=== PATIENT | female | born 1995 | race African-American/Black ===

== ENCOUNTER 2019-06-05 10:03 | Emergency (ER) | payer MEDICAID ==
[~2019-06-05] VITALS: Ht 157.5 cm; Wt 62.0 kg
[2019-06-05] MEDS ORDERED: HYDROCODONE/ACETAMINOPHEN 5/325MG TABLET PO ONE (10:45)
[2019-06-05] MEDS ORDERED: ONDANSETRON 4MG ODT PO ONE (10:45)
[2019-06-05] MEDS ORDERED: CEFAZOLIN SODIUM 1000MG/VIAL IM ONE (10:45)
[2019-06-05 10:49] VITALS: BP 119/74
== END 2019-06-05 11:00 | disposition home or self-care (01) ==
LOC: ER 10:59
DX: R68.84 Jaw pain (principal); K04.7 Periapical abscess without sinus
CPT/HCPCS: 99283; J0690; Q0162

== ENCOUNTER 2024-05-09 22:41 | Emergency (ER) | payer SELFPAY ==
[~2024-05-09] VITALS: Ht 157.5 cm; Wt 73.0 kg
[2024-05-09 23:21] VITALS: O2SAT 100
[2024-05-10 03:21] LABS: CLARITY URINE CLEAR (CLEAR); COLOR URINE DARK YELLOW (YELLOW); GLUCOSE URINE NEGATIVE (NEGATIVE); KETONES URINE 4+ (NEGATIVE); LEUKOCYTE ESTERASE URINE NEGATIVE (NEGATIVE); NITRITE URINE NEGATIVE (NEGATIVE); OCCULT BLOOD URINE 1+ (NEGATIVE); PROTEIN URINE TRACE (NEGATIVE); SPECIFIC GRAVITY URINE 1.034 (1.005-1.030)
[2024-05-10] MEDS: CEFTRIAXONE SODIUM 500MG VIAL IM ONE (03:31)
[2024-05-10] MEDS ORDERED: DOXY100T28 MT (03:46)
[2024-05-10 03:52] VITALS: BP 118/76; PULSE 88; RESP 19; TEMP 98
[2024-05-10 04:20] LABS: BACTERIA URINE TRACE; MUCUS URINE 2+ /lpf (< = 2+); SQUAMOUS EPITHELIAL CELL URINE 2+ /lpf (RARE/1+); WBC URINE 0-2 /hpf (0-2)
[2024-05-13 04:07] LABS: CHLAMYDIA TRACHOMATIS NAA Negative (Negative); NEISSERIA GONORRHOEAE NAA Positive (Negative)
== END 2024-05-10 03:55 | disposition home or self-care (01) ==
LOC: ER 22:41
DX: N76.0 Acute vaginitis (principal)
CPT/HCPCS: 99284; 81025; 87491; 87591; 81003; 87210; 96372; J0696

== ENCOUNTER 2024-06-10 20:15 | Emergency (ER) | payer SELFPAY ==
[~2024-06-10] VITALS: Ht 160 cm; Wt 76.0 kg
[~2024-06-10 20:15] MED LIST: DOXY100T28 MT
[2024-06-10 20:22] VITALS: TEMP 98.6; O2SAT 97
[2024-06-10 20:57] LABS: CLARITY URINE TURBID (CLEAR); COLOR URINE RED (YELLOW); GLUCOSE URINE NEGATIVE (NEGATIVE); KETONES URINE NEGATIVE (NEGATIVE); LEUKOCYTE ESTERASE URINE 3+ (NEGATIVE); NITRITE URINE POSITIVE (NEGATIVE); OCCULT BLOOD URINE 2+ (NEGATIVE); PROTEIN URINE 3+ (NEGATIVE); SPECIFIC GRAVITY URINE 1.015 (1.005-1.030)
[2024-06-10] MEDS ORDERED: CEPH500C2 MT (21:10)
[2024-06-10 21:15] LABS: BACTERIA URINE 2+; SQUAMOUS EPITHELIAL CELL URINE 1+ /lpf (RARE/1+); WBC URINE TNTC /hpf (0-2)
[2024-06-10 21:27] LABS: HCG SCREEN NEGATIVE
[2024-06-10] MEDS: CEPHALEXIN 250MG CAPSULE PO ONE (22:18)
[2024-06-10 22:20] VITALS: BP 111/59; PULSE 97; RESP 14
== END 2024-06-10 22:22 | disposition home or self-care (01) ==
LOC: ER 20:15
DX: N39.0 Urinary tract infection, site not specified (principal)
CPT/HCPCS: 81003; 81025; 84703; 87077; 87186; 99283

== ENCOUNTER 2025-08-21 07:31 | Emergency (ER) | payer SELFPAY ==
[~2025-08-21] VITALS: Ht 157.5 cm; Wt 74.0 kg
[~2025-08-21 07:31] MED LIST changes: +CEPH500C2 MT
[2025-08-21 07:44] VITALS: TEMP 36.7; O2SAT 99
[2025-08-21] MEDS ORDERED: CEPH500T MT (08:16)
[2025-08-21] MEDS ORDERED: IBUP-1455 MT (08:16)
[2025-08-21 08:25] VITALS: BP 103/71; PULSE 76; RESP 15; O2SAT 99
== END 2025-08-21 08:27 | disposition home or self-care (01) ==
LOC: ER 07:31
DX: K02.9 Dental caries, unspecified (principal); Z98.890 Other specified postprocedural states; Z79.899 Other long term (current) drug therapy
CPT/HCPCS: 99283